=== PATIENT | male | born 1995 | race Caucasian/White ===

== ENCOUNTER 2017-05-24 14:58 | Emergency (ER) | payer OTHER | END 2017-05-24 16:03 | disposition home or self-care (01) | LOC: D.ER 14:58 | DX: R59.1 Generalized enlarged lymph nodes (principal); F17.200 Nicotine dependence, unspecified, uncomplicated ==

== ENCOUNTER 2017-06-13 17:40 | Emergency (ER) | payer OTHER | END 2017-06-13 20:38 | disposition home or self-care (01) | LOC: D.ER 17:40 | DX: J06.9 Acute upper respiratory infection, unspecified (principal); M54.5 Low back pain; R53.83 Other fatigue; R51 Headache; F17.200 Nicotine dependence, unspecified, uncomplicated ==

== ENCOUNTER 2021-02-05 15:52 | Emergency (ER) | payer MEDICARE ==
[~2021-02-05] VITALS: Ht 180.3 cm; Wt 97.7 kg
[~2021-02-05 15:52] MED LIST: OMNICEF300 MG PO
[2021-02-05 15:56] VITALS: BP 118/60; Ht 180.3 cm; Wt 97.7 kg
[2021-02-05] MEDS ORDERED: CLEOCIN HCL300 MG PO (16:02)
[2021-02-05] MEDS ORDERED: NAPROSYN500 MG PO (16:02)
== END 2021-02-05 16:04 | disposition home or self-care (01) ==
LOC: D.ER 15:52
DX: L03.012 Cellulitis of left finger (principal)